=== PATIENT | female | born 1955 | race African-American/Black ===

== ENCOUNTER 2022-04-09 02:57 | Inpatient (IN) | payer OTHER, MEDICAID ==
[~2022-04-09] VITALS: Ht 162.6 cm; Wt 44.5 kg
[2022-04-09] MEDS ORDERED: METHYLPREDNISOLONE SOD SUCC 125 MG/2 ML VIAL IV STA (03:04)
[2022-04-09] MEDS ORDERED: IPRATROPIUM BROMIDE (0.02%) 0.5MG/2.5ML NEB HHN STA (03:04)
[2022-04-09] MEDS ORDERED: ALBUTEROL (0.083%) 2.5MG/3ML NEB HHN STA (03:04)
[2022-04-09] MEDS ORDERED: FUROSEMIDE 40MG/4ML VIAL IV ONE (03:15)
[2022-04-09] MEDS ORDERED: ASPIRIN 81MG TABLET PO ONE (03:15)
[2022-04-09] MEDS ORDERED: MAGNESIUM 2 G PREMIX 50 ML IV ONE (03:15)
[2022-04-09 03:31] LABS: BASOPHILS % 0.8 % (0.0-2.0); EOSINOPHILS % 1.2 % (0.0-5.0); HEMOGLOBIN. 12.9 g/dL (12.0-16.0); LYMPHOCYTES % 28.1 % (20.0-50.0); MEAN CORPUSCULAR HEMOGLOBIN 31.2 pg (28.0-32.0); MEAN CORPUSCULAR VOLUME 94.2 fL (81.0-99.0); MEAN PLATELET VOLUME 8.3 fl (7.4-10.4); MONOCYTES % 6.2 % (2.0-8.0); NEUTROPHILS % 63.7 % (40.0-76.0); PLATELET 284 x1000/uL (130-400); RED BLOOD CELL COUNT 4.14 mill/uL (4.2-5.4); RED CELL DISTRIBUTION WIDTH 13.8 % (11.6-14.6)
[2022-04-09 05:55] LABS: CHLORIDE 102 mEq/L (98-107)
[2022-04-09 08:00] VITALS: BP 140/70
[2022-04-09 10:29] VITALS: BP 114/70
[2022-04-09] MEDS ORDERED: ONDANSETRON HCL 4MG/2ML INJ IV PRN (11:00)
[2022-04-09] MEDS ORDERED: ACETAMINOPHEN 325MG TABLET PO PRN (11:00)
[2022-04-09] MEDS ORDERED: DEXTROSE 50% WATER 50ML SYRINGE IV PRN (11:45)
[2022-04-09] MEDS: METHYLPREDNISOLONE SOD SUCC 40 MG/ML VIAL IV SCH ×2 (11:50→18:02)
[2022-04-09] MEDS: BLOOD SUGAR DIAGNOSTIC STRIP TEST SCH ×3 (11:52→21:43)
[2022-04-09 12:00] VITALS: BP 135/68
[2022-04-09] MEDS ORDERED: IPRATROPIUM/ALBUTEROL 0.5-3(2.5)MG/3ML NEB HHN SCH (12:00)
[2022-04-09] MEDS: INSULIN LISPRO 100 UNITS/ML SUBCUT SCH ×3 (13:00→21:54)
[2022-04-09 14:00] VITALS: BP 145/65
[2022-04-09] MEDS ORDERED: ALBUTEROL (0.083%) 2.5MG/3ML NEB HHN PRN (14:30)
[2022-04-09] MEDS ORDERED: BUDESONIDE 0.5MG/2ML NEB HHN SCH (14:30)
[2022-04-09] MEDS: IPRATROPIUM BROMIDE (0.02%) 0.5MG/2.5ML NEB HHN SCH ×2 (15:45→21:18)
[2022-04-09] MEDS: ALBUTEROL (0.083%) 2.5MG/3ML NEB HHN SCH ×2 (15:45→21:18)
[2022-04-09 16:00] VITALS: BP 135/85
[2022-04-09] MEDS ORDERED: FAMOTIDINE 20MG TABLET PO SCH (21:00)
[2022-04-09] MEDS: BUDESONIDE 0.5MG/2ML NEB HHN SCH (21:18)
[2022-04-10] VITALS: BP 126/92
[2022-04-10 02:00] VITALS: BP 124/84
[2022-04-10] MEDS: IPRATROPIUM BROMIDE (0.02%) 0.5MG/2.5ML NEB HHN SCH ×2 (02:32→08:08)
[2022-04-10] MEDS: ALBUTEROL (0.083%) 2.5MG/3ML NEB HHN SCH ×2 (02:33→08:09)
[2022-04-10] MEDS: METHYLPREDNISOLONE SOD SUCC 40 MG/ML VIAL IV SCH (03:05)
[2022-04-10 04:00] VITALS: BP 120/71
[2022-04-10 06:00] VITALS: BP 122/70
[2022-04-10] MEDS: BLOOD SUGAR DIAGNOSTIC STRIP TEST SCH ×2 (07:30→11:08)
[2022-04-10 08:00] VITALS: BP 135/68
[2022-04-10] MEDS: INSULIN LISPRO 100 UNITS/ML SUBCUT SCH (08:00)
[2022-04-10] MEDS: BUDESONIDE 0.5MG/2ML NEB HHN SCH (08:09)
[2022-04-10] MEDS ORDERED: ASPIRIN 81MG TABLET PO SCH (09:00)
[2022-04-10] MEDS ORDERED: FUROSEMIDE 40MG/4ML VIAL IVP SCH (09:00)
[2022-04-10 10:00] VITALS: BP 135/68
[2022-04-10] MEDS ORDERED: INSULIN LISPRO 100 UNITS/ML SUBCUT NR (11:15)
== END 2022-04-10 16:02 | disposition left against medical advice (07) | DRG 280 ==
LOC: ER 02:59 → 5EST 05:07 → ENRESERV 08:13
PROVIDERS: ADMIT Internal Medicine; ATTEND Internal Medicine
PROC: 5A09357 Assistance with Respiratory Ventilation, Less than 24 Consecutive Hours, Continuous Positive Airway Pressure (ICD-10-PCS; principal; 2022-04-09)
DX: I11.0 Hypertensive heart disease with heart failure (principal); I50.43 Acute on chronic combined systolic (congestive) and diastolic (congestive) heart failure; I21.4 Non-ST elevation (NSTEMI) myocardial infarction; J96.20 Acute and chronic respiratory failure, unspecified whether with hypoxia or hypercapnia; J44.1 Chronic obstructive pulmonary disease with (acute) exacerbation; Z68.1 Body mass index [BMI] 19.9 or less, adult; E11.65 Type 2 diabetes mellitus with hyperglycemia; E78.5 Hyperlipidemia, unspecified; F41.0 Panic disorder [episodic paroxysmal anxiety]; G43.909 Migraine, unspecified, not intractable, without status migrainosus; I83.90 Asymptomatic varicose veins of unspecified lower extremity; E66.9 Obesity, unspecified; K21.9 Gastro-esophageal reflux disease without esophagitis; I44.7 Left bundle-branch block, unspecified; Z87.891 Personal history of nicotine dependence; Z82.49 Family history of ischemic heart disease and other diseases of the circulatory system; Z99.81 Dependence on supplemental oxygen; Z86.73 Personal history of transient ischemic attack (TIA), and cerebral infarction without residual deficits; Z63.4 Disappearance and death of family member; Z79.899 Other long term (current) drug therapy; Z90.49 Acquired absence of other specified parts of digestive tract
CPT/HCPCS: 36415; 71045; 80053; 82962; 83036; 83880; 84484; 85025; 87804; 93005; 93306; 94640; 94660; 99291; J1815; J1940; J2920; J2930; J3475; J7626